=== PATIENT | female | born 1965 | race Caucasian/White ===

== ENCOUNTER 2023-12-07 08:19 | Observation (INO) ==
[2023-12-07] MEDS ORDERED: fentaNYL 100 mcg/2 ml 50 MCG/ML VIAL ONE (08:21)
[2023-12-07] MEDS ORDERED: Midazolam 2 mg/2 ml VIAL 1 mg/ml 2 ml VIAL (2 mg) ONE ×2 (08:21→11:23)
[2023-12-07] MEDS ORDERED: Lidocaine 2% PF 5 ML VIAL ONE (08:21)
[2023-12-07] MEDS ORDERED: Propofol 10 MG/ML 20 ML BTL ONE ×5 (08:21→13:30)
[2023-12-07] MEDS ORDERED: Tranexamic Acid 1 GM/100ML BAG 2,000 MG/200 ML BAG IV ONE (08:35)
[2023-12-07] MEDS ORDERED: ceFAZolin 2 GM in NS PREMIX 2 GM/100 ML BAG IVPB ONE (08:35)
[2023-12-07 08:54] LABS: Rapid COVID-19 Molecular Undetected (Undetected)
[2023-12-07] MEDS ORDERED: ROPIVACAINE 5 MG/ML 30 ML BTL (0.5%) ONE ×2 (09:51→10:26)
[2023-12-07] MEDS ORDERED: fentaNYL 100 mcg/2 ml 50 MCG/ML VIAL IV PRN (11:22)
[2023-12-07] MEDS ORDERED: Ondansetron 4 mg VIAL 2 MG/ML 2 ml VIAL IV PRN ×2 (11:22→12:07)
[2023-12-07] MEDS ORDERED: Acetaminophen IV 1 GM/100ML 1,000 MG/100 ML BAG IV PRN (11:22)
[2023-12-07] MEDS ORDERED: HYDROmorphone 1 MG/1 ML SYRINGE IV PRN (11:22)
[2023-12-07] MEDS ORDERED: Naloxone 0.4 mg VIAL 0.4 mg/ml 1 ml VIAL IV PRN (11:22)
[2023-12-07] MEDS ORDERED: KETAMINE HCL 10 MG/ML 20 ml VIAL (200 MG) ONE (11:45)
[2023-12-07] MEDS ORDERED: Lactulose 30 ml UDC PO PRN (12:07)
[2023-12-07] MEDS ORDERED: Ondansetron ODT 4 mg TAB 4 MG TAB PO PRN (12:07)
[2023-12-07] MEDS ORDERED: Morphine 2 MG/ML SYRINGE IV PRN (12:07)
[2023-12-07] MEDS ORDERED: Magnesium Hydroxide LIQ 30 ML UDC PO PRN (12:07)
[2023-12-07] MEDS ORDERED: Ondansetron 4 mg VIAL 2 MG/ML 2 ml VIAL ONE (13:14)
[2023-12-07] MEDS ORDERED: Dexamethasone IV 4 MG/ML VIAL 1 ml VIAL ONE (13:14)
[2023-12-07] MEDS: Lactated Ringers 1000 ml BAG 1,000 ML IV SCH (14:50)
[2023-12-07] MEDS: ceFAZolin 1 GM ADVAN 1 GM in NS 0.9% 50 ML 50 ML IVPB SCH (18:31)
[2023-12-07] MEDS: Magnesium Hydroxide LIQ 30 ML UDC PO SCH (21:43)
[2023-12-08 05:29] LABS: Hematocrit 33.3 % (35-45); Hemoglobin 11.6 g/dL (11.5-14.3); Mean Platelet Volume 9.4 fL (7.5-11.2); Platelet Count 222 10^3/uL (150-450)
[2023-12-08 06:08] LABS: Calcium 8.7 mg/dL (8.6-10.3); Creatinine, Serum 0.77 mg/dL (0.51-0.95); Potassium 4.3 mmol/L (3.5-5.0); eGFR CKD-EPI 88.8 (>60)
[2023-12-08] MEDS ORDERED: Multivitamins/Minerals TAB PO SCH (09:00)
[2023-12-08] MEDS: Vitamin THERAPEUTIC TAB PO SCH (10:13)
[2023-12-08 10:42] VITALS: BP 130/86
== END 2023-12-08 14:14 | disposition home or self-care (01) ==
LOC: INTOOBSV 08:19 → AA 08:19 → SSU 14:37
PROVIDERS: ADMIT Orthopaedic Surgery Adult Reconstructive Orthopaedic Surgery; ATTEND Orthopaedic Surgery Adult Reconstructive Orthopaedic Surgery